=== PATIENT | male | born 1980 | race Caucasian/White ===

== ENCOUNTER 2016-07-05 09:41 | Emergency (ER) | payer MEDICAID ==
[~2016-07-05] VITALS: Ht 177.8 cm; Wt 102.0 kg
[2016-07-05 09:47] VITALS: Ht 177.8 cm; Wt 102.0 kg
[2016-07-05] MEDS ORDERED: MUPI22OI2 TOP (10:22)
[2016-07-05] MEDS ORDERED: BACTDS PO (10:22)
[2016-07-05] MEDS ORDERED: CEPH-443 PO (10:22)
[2016-07-05 10:27] VITALS: TEMP 98.3
--- NOTE | 2016-07-05 10:27 | ERD ---
ER Documentation Chief Complaint Date/Time DATE: 07/05/16 TIME: 10:25 Chief Complaint Abscess HPI 36-year-old male otherwise healthy comes in with a left posterior thigh abscess as well as 1 small abscess on the right thigh over the past week. Patient states that they have already drained on their own however was concerned that he may need antibiotics. He denies fevers or chills with this. ROS All systems reviewed and are negative except as per history of present illness. Medications Home Meds Active Scripts Mupirocin* (Bactroban*) 2% -22 Gram Oint...g., 1 APPLIC TOP BID for 7 Days, EA Prov:DILAN SCHNEIDER PA-C 07/05/16 Sulfamethoxazole-Trimethoprim* (Bactrim* DS) 800-160 Mg Tab, 1 TAB PO BID for 7 Days, TAB Prov:DILAN SCHNEIDER PA-C 07/05/16 Cephalexin* (Keflex*) 500 Mg Capsule, 500 MG PO QID for 7 Days, CAP Prov:DILAN SCHNEIDER PA-C 07/05/16 Allergies Allergies: Coded Allergies: No Known Allergy (Unverified , 07/05/16) PMhx/Soc Medical and Surgical Hx: pt denies Medical Hx, pt denies Surgical Hx Physical Exam Vitals Vital Signs Date Time Temp Pulse Resp B/P Pulse Ox O2 Delivery O2 Flow Rate FiO2 07/05/16 09:47 97.8 93 16 143/86 96 Physical Exam General: Well-developed, well-nourished. The patient appears in no acute distress. HEENT: Head is normocephalic, atraumatic. No scleral icterus. Neck: Supple. Nontender. Lungs: Clear to auscultation. Normal air movement. Heart: Regular rate and rhythm. S1 and S2 are normal. No murmurs, gallops, or rubs. Abdomen: Soft, nontender, nondistended. Bowel sounds are normoactive. Extremities: No clubbing or cyanosis. Normal pulses. Moving extremities x 4. No weakness. Neurologic: Alert and oriented 3. No focal deficits. Skin: Right upper thigh has a 0.5 cm erythematous lesion, there is a 1.5 cm opening on the left posterior proximal thigh, with surrounding erythema, there is no fluctuance, no drainage, there is induration. Procedures/MDM 36-year-old male comes in with an abscess, that has already drained, the small one on the right thigh can be treated with topicals. There are no signs of surrounding cellulitis abscess that warrants incision and drainage or deep space infection. Departure Diagnosis: Primary Impression: Abscess Condition: Good Patient Instructions: Abscess, Antiobiotic Treatment Only DILAN SCHNEIDER PA-C Jul 05, 2016 10:27
== END 2016-07-05 10:27 | disposition home or self-care (01) ==
LOC: FTE 09:41
DX: L02.416 Cutaneous abscess of left lower limb (principal)
CPT/HCPCS: 99284

== ENCOUNTER 2016-11-14 13:51 | Emergency (ER) | payer MEDICAID, OTHER ==
[~2016-11-14] VITALS: Ht 172.7 cm; Wt 99.0 kg
[~2016-11-14 13:51] MED LIST: BACTDS PO; CEPH-443 PO; MUPI22OI2 TOP
[2016-11-14 14:07] VITALS: Ht 172.7 cm; Wt 99.0 kg
[2016-11-14] MEDS ORDERED: IBUPROFEN 800 MG TAB PO ONE (15:30)
[2016-11-14] MEDS ORDERED: LIDOCAINE 1% (MDV) 20 ML INJ SC ONE (15:30)
[2016-11-14] MEDS ORDERED: CEPH-443 PO (16:40)
[2016-11-14] MEDS ORDERED: SULF1TAB31 PO (16:40)
[2016-11-14] MEDS ORDERED: IBUP800T25 PO (16:41)
--- NOTE | 2016-11-14 16:52 | ERD ---
ER Documentation Chief Complaint Date/Time DATE: 11/14/16 TIME: 16:43 Chief Complaint abscess under right axilla HPI This a 36-year-old male presents to the emergency department for an abscess in his right arm. States he had something similar on the back of his thigh in July however that had already opened up. States he takes ibuprofen for pain. States that the area started out small and he squeezed it and has been big for the past 2 days. Denies any fevers or chills. 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 ROS All systems reviewed and are negative except as per history of present illness. Medications Home Meds Active Scripts Ibuprofen* (Motrin*) 800 Mg Tab, 800 MG PO Q6, #30 TAB Prov:LORE WOO PA-C 11/14/16 Sulfamethoxazole/Trimethoprim* (Bactrim Ds* Tablet) 1 Each Tablet, 1 TAB PO BID for 7 Days, #14 TAB Prov:LORE WOO PA-C 11/14/16 Cephalexin* (Keflex*) 500 Mg Capsule, 500 MG PO QID for 7 Days, CAP Prov:LORE WOO PA-C 11/14/16 Mupirocin* (Bactroban*) 2% -22 Gram Oint...g., 1 APPLIC TOP BID for 7 Days, EA Prov:DILAN SCHNEIDER PA-C 07/05/16 Sulfamethoxazole-Trimethoprim* (Bactrim* DS) 800-160 Mg Tab, 1 TAB PO BID for 7 Days, TAB Prov:DILAN SCHNEIDER PA-C 07/05/16 Cephalexin* (Keflex*) 500 Mg Capsule, 500 MG PO QID for 7 Days, CAP Prov:DILAN SCHNEIDER PA-C 07/05/16 Allergies Allergies: Coded Allergies: No Known Allergy (Unverified , 07/05/16) PMhx/Soc Medical and Surgical Hx: pt denies Medical Hx, pt denies Surgical Hx Hx Alcohol Use: No Hx Substance Use: No Hx Tobacco Use: No Physical Exam Vitals Vital Signs Date Time Temp Pulse Resp B/P Pulse Ox O2 Delivery O2 Flow Rate FiO2 11/14/16 14:07 97.6 94 18 151/74 98 Physical Exam Const: pleasant, NAD Head: Atraumatic Eyes: Normal Conjunctiva ENT: Normal External Ears, Nose and Mouth. Neck: Full range of motion..~ No meningismus. Resp: Clear to auscultation bilaterally Cardio: Regular rate and rhythm, no murmurs Abd: Soft, non tender, non distended. Normal bowel sounds Skin: 3 cm abscess vs cystic structure right axilla with localized erythema and firmness and tenderness. No purulent drainage. Back: No midline or flank tenderness Ext: No cyanosis, or edema Neur: Awake and alert Psych: Normal Mood and Affect Results 24 hrs Current Medications Medications (Trade) Dose Ordered Sig/Salvador Route PRN Reason Start Time Stop Time Status Last Admin Dose Admin Ibuprofen (Motrin) 800 mg ONCE ONCE PO 11/14/16 15:30 11/14/16 15:31 DC 11/14/16 15:22 Lidocaine (Xylocaine 1% (Mdv) 20 ml) 20 ml ONCE ONCE SC 11/14/16 15:30 11/14/16 15:31 DC Procedures/MDM This is a 36-year-old male who presents the emergency department today for a 3 cm abscess versus cystic structure for the past couple of days. On physical exam area has mostly firmness and there is very little fluctuance. Patient was requesting that an attempt be made to try and drain the area. I did offer to do an incision and drainage and see if I was able to get any fluid out. Risks and benefits of the procedure were explained to the patient he agreed to proceed. Patient tolerated the procedure well and there were no complications. Wound was cleaned in the usual sterile fashion. Abscess Incision and Drainage with irrigation by me: Location: Right axilla Anesthesia: [Local 1% Lidocaine] 5 cc Technique: [Irrigated. Disrupted loculations w/ instrumentation ] Packing: Quarter-inch iodoform Complications: [Neurovascularly intact post procedure] 48 hour wound check. Scar minimization instructions given. Patient's skin symptoms have stabilized while they have been evaluated in the department and are appropriate for outpatient care and work up. Exam and w/u not consistent w/ sepsis, deep space infection, or foreign body. Small amount of purulent drainage was removed. Low suspicion for sepsis, deep space infection. Patient was given a prescription for Keflex, Bactrim and Motrin. Patient is a recovering addict and I do not feel that narcotics would be beneficial at this time. Patient was not requesting narcotic medication and he is not exhibiting drug-seeking behavior. At this time the patient is stable for discharge and outpatient management. Patient should follow up with their PCP in the next 1-2 days. They may return to the emergency department sooner for any persistent or worsening of symptoms. Patient understood and agreed with the plan. Departure Diagnosis: Primary Impression: Abscess Condition: Fair Patient Instructions: Abscess, Incision And Drainage Referrals: [facility] YOU HAVE RECEIVED A MEDICAL SCREENING EXAM AND THE RESULTS INDICATE THAT YOU DO NOT HAVE A CONDITION THAT REQUIRES URGENT TREATMENT IN THE EMERGENCY DEPARTMENT. FURTHER EVALUATION AND TREATMENT OF YOUR CONDITION CAN WAIT UNTIL YOU ARE SEEN IN YOUR DOCTORS OFFICE WITHIN THE NEXT 1-2 DAYS. IT IS YOUR RESPONSIBILITY TO MAKE AN APPOINTMENT FOR FOLOW- CARE. IF YOU HAVE A PRIMARY DOCTOR --you should call your primary doctor and schedule an appointment IF YOU DO NOT HAVE A PRIMARY DOCTOR YOU CAN CALL OUR PHYSICIAN REFERRAL HOTLINE AT IF YOU CAN NOT AFFORD TO SEE A PHYSICIAN YOU CAN CHOSE FROM THE FOLLOWING [facility] [id number] [facility] [address] [facility] [address] [facility] [address] [facility] [facility] [address]. [facility]. [address] Additional Instructions: Call your primary care doctor TOMORROW for an appointment during the next 1-2 days.See the doctor sooner or return here if your condition worsens before your appointment time. Wound check in 48 hours Take antibiotics as prescribed Keep wound clean and dry Take Motrin for any pain LORE WOO PA-C November 14, 2016 16:52
== END 2016-11-14 16:55 | disposition home or self-care (01) ==
LOC: FTE 13:51
DX: L02.411 Cutaneous abscess of right axilla (principal)
CPT/HCPCS: 10061; Z7502; Z7610